=== PATIENT | female | born 1980 | race Caucasian/White ===

== ENCOUNTER → 2016-11-12 | Outpatient (CLI) | payer OTHER ==
[~2016-11-12] MED LIST: ASPIRIN 81M81 MG/TA2; COLACE 100100 MG/CAP; COLACE 100100 MG/CAP PO; MOTRIN 600600 MG/TAB PO; NIFEREX-15150 MG/CAP PO; PERCOCET 325 MG1 TA2 PO; PRENATAL1 TA1; SENOKOT8.6 MG PO
== END ==
LOC: COL.RAD 08:41
DX: K21.9 Gastro-esophageal reflux disease without esophagitis (principal); K59.00 Constipation, unspecified; R14.2 Eructation; R14.0 Abdominal distension (gaseous)
CPT/HCPCS: A9541

== ENCOUNTER → 2018-01-03 | Outpatient (CLI) | payer BC, OTHER | LOC: COL.LAB 13:37 | DX: K21.9 Gastro-esophageal reflux disease without esophagitis (principal); K58.9 Irritable bowel syndrome, unspecified ==

== ENCOUNTER → 2022-02-11 | Outpatient (CLI) | payer BC | LOC: MC.RAD 09:15 | DX: Z12.31 Encounter for screening mammogram for malignant neoplasm of breast (principal) ==

== ENCOUNTER → 2024-04-12 | Outpatient (CLI) | payer BC, OTHER | LOC: MC.RAD 14:41 | DX: Z12.31 Encounter for screening mammogram for malignant neoplasm of breast (principal) ==